=== PATIENT | female | born 1975 | race Caucasian/White ===

== ENCOUNTER 2024-03-07 12:46 | Outpatient (AMB) | payer OTHER, SELFPAY ==
--- NOTE | 2024-03-07 12:49 | HO.SPINEOV ---
Intake Visit Reasons: Left posterolateral disc protusion Intake Note: Mrs. Calderon is here today c/o neck pain and weakness. Digital Community Manager Required: No Assessment & Plan Assessment & Plan (1) Cervical disc disorder: Code(s): M50.90 - Cervical disc disorder, unspecified, unspecified cervical region Category: Medical Plan Dear Cornell, Thank you for referring Mrs Calderon to our office today. She is a very nice 48-year-old female presents to the office today for evaluation of chronic issues with neck pain, diagnosis of degenerative disc disease on recent MRI. The patient reports that she has had this pain going on for years, can get worse at times. Intermittently will have tingling in the fingers and occasional pain down the arm but the main issue is neck pain. She takes meloxicam and Topamax which does seem to help a little bit. Currently, she is working with a therapist on some hip issues, but has not had any dedicated conservative management for the neck. She comes in today with an MRI done at [facility] showing degenerative disc disease, primarily at C5-6. PMH: She is otherwise healthy, she does have some lumbar disc bulging issues, hypothyroidism, GERD, hysterectomy Social hx: She has not smoke, drink or use any recreational drugs Medications: Meloxicam, levothyroxine, spironolactone, omeprazole, Topamax, famotidine Allergies: None Physical exam: Patient is awake alert oriented no acute distress, she has full strength of bilateral upper and lower extremities with normal reflexes. Imaging review: There is a cervical MRI that I was unable to load into my computer, but the report included with the disc suggests the patient has degenerative disc disease throughout her neck, worse at C5-6. Impression: 48-year-old female with degenerative disc disease of the cervical spine, primarily C5-6 with some neck pain. Currently having no shooting pains down the arms. Her neurological exam is reassuring. I explained to her that many of the findings on the MRI can be normal as we age, nothing that needs to be addressed surgically at this point. Typically, a patient would go through extensive conservative management including PT, injections etc. prior to leading up to surgery. Right now, I told her to ask her therapist if they could work with some of her neck issues at the same time as they are working with her hips. I would be glad to send a referral for this. I think it may take a few months but overall the prospect is good that things may improve. She should continue to take nonsteroidal anti-inflammatories. We can see her back if she starts to develop radicular symptoms or something changes for the worse with the neck pain. Thank you for allowing us to care for your patient. The total time spent with this visit with this patient was 45 minutes reviewing history, physical exam, cervical spine imaging review, and implementation of treatment plan or further diagnostic testing Chilo Cook MD,PhD [facility] Coding Level of Care Code New Pt Level 4 (70579) Diagnoses Cervical disc disorder M50.90
== END 2024-03-07 13:35 | disposition home or self-care (01) ==
PROVIDERS: PCP Physician Assistant Surgical; Referring Provider Physician Assistant Surgical; Visit Provider Physician Assistant
DX: M50.90 Cervical disc disorder, unspecified, unspecified cervical region (principal)
CPT/HCPCS: 99204

== ENCOUNTER → 2024-03-07 12:46 | Outpatient (BNVA) | payer OTHER, SELFPAY | PROVIDERS: PCP Physician Assistant Surgical; Visit Provider Physician Assistant ==